=== PATIENT | female | born 1970 | race Hispanic/Latino ===

== ENCOUNTER → 2024-01-20 | Day surgery (SDC) | payer MEDICARE ==
[~2024-01-20] MED LIST: BUPIVACAINE HCL 0.5% INJ 30 ML VIAL INJ ONE; FENTANYL CITRATE/PF 100MCG/2 ML INJ ONE; IOPAMIDOL 200 MG/ML 20 ML VIAL IT ONE; KLONOPIN1 MG PO; LEVOTHYROXINE150 MCG PO; LIDOCAINE HCL 2% LOCAL INJ 5 ML SDV VIAL INJ ONE; PROAIR HFA INH8.5 GM; PROPOFOL IV EMULSION 10 MG/ML 20 ML VIAL ONE; SYNTHROID125 MCG PO; TRIAMCINOLONE ACET 40 MG/ML VIAL ONE; TYLENOL #3 PO
[2024-01-20] MEDS: LACTATED RINGER'S 1,000 ML ONE (08:49)
[2024-01-20 12:52] VITALS: TEMP 97.1
[2024-01-20 13:20] VITALS: BP 140/88; PULSE 60; RESP 18; O2SAT 100
== END | disposition home or self-care (01) ==
LOC: OR 08:20
PROVIDERS: ATTEND Specialist
DX: M16.0 Bilateral primary osteoarthritis of hip (principal); M54.9 Dorsalgia, unspecified; E03.9 Hypothyroidism, unspecified; E66.01 Morbid (severe) obesity due to excess calories; F41.9 Anxiety disorder, unspecified; F31.81 Bipolar II disorder; G90.50 Complex regional pain syndrome I, unspecified; F43.10 Post-traumatic stress disorder, unspecified; Z88.0 Allergy status to penicillin; Z01.810 Encounter for preprocedural cardiovascular examination; Z79.899 Other long term (current) drug therapy; Z68.42 Body mass index [BMI] 45.0-49.9, adult
CPT/HCPCS: 20610; 77002; 93005; J2001; J2704; J3010; J3301; J7121; Q9967

== ENCOUNTER 2025-01-16 18:53 | Emergency (ER) | payer MEDICARE ==
[~2025-01-16] VITALS: Ht 177.8 cm; Wt 134.7 kg
[~2025-01-16 18:53] MED LIST changes: -BUPIVACAINE HCL 0.5% INJ 30 ML VIAL INJ ONE; -FENTANYL CITRATE/PF 100MCG/2 ML INJ ONE; -IOPAMIDOL 200 MG/ML 20 ML VIAL IT ONE; -LIDOCAINE HCL 2% LOCAL INJ 5 ML SDV VIAL INJ ONE; -PROPOFOL IV EMULSION 10 MG/ML 20 ML VIAL ONE; -TRIAMCINOLONE ACET 40 MG/ML VIAL ONE
[2025-01-16 19:12] VITALS: PULSE 105; RESP 20; TEMP 99.1
[2025-01-16] MEDS: KETOROLAC TROMETHAMINE 60 MG/2 ML VIAL IM ONE (20:10)
[2025-01-16] MEDS ORDERED: ULTRAM 50MG50 MG PO (21:16)
[2025-01-16 22:22] VITALS: BP 129/84; PULSE 74; RESP 18; TEMP 98.6; O2SAT 98
== END 2025-01-16 21:38 | disposition home or self-care (01) ==
LOC: ER 19:02
DX: S51.012A Laceration without foreign body of left elbow, initial encounter (principal); S50.811A Abrasion of right forearm, initial encounter; M25.562 Pain in left knee; W01.198A Fall on same level from slipping, tripping and stumbling with subsequent striking against other object, initial encounter; Y93.01 Activity, walking, marching and hiking; Y92.89 Other specified places as the place of occurrence of the external cause; E03.9 Hypothyroidism, unspecified; M79.7 Fibromyalgia; F41.9 Anxiety disorder, unspecified; M54.9 Dorsalgia, unspecified; G89.29 Other chronic pain
CPT/HCPCS: 12001; 73080; 73090 ×2; 73562; 99283; J1885